=== PATIENT | male | born 1995 | race Hispanic/Latino ===

== ENCOUNTER 2017-01-27 02:47 | Emergency (ER) | payer OTHER ==
[2017-01-27 02:59] VITALS: BP 136/74; RESP 16; TEMP 97.9; O2SAT 97
--- NOTE | 2017-01-27 03:11 | ED PDOC ---
HPI: Psych/Substance Abuse Time Seen by Provider: 01/27/17 02:57 Chief Complaint (Nursing): Alcohol Ingestion Chief Complaint (Provider): ETOH ingestion History Per: Patient History/Exam Limitations: no limitations Onset/Duration Of Symptoms: Mins Current Symptoms Are (Timing): Still Present Suicide/Self Injury Attempted (Context): None Modifying Factor(s): Alcohol Additional Complaint(s): The patient is a 21yo male, hx of SVT, brought to the ED by EMS for evaluation s /p finding the patient publicly intoxicated. Patient denies any chest pain, chest tightness, shortness of breath. Patient currently offers no additional medical complaints. Past Medical History Reviewed: Historical Data, Nursing Documentation, Vital Signs Vital Signs: Last Vital Signs Temp 97.9 F 01/27/17 02:57 Pulse 143 H 01/27/17 02:57 Resp 16 01/27/17 02:57 BP 136/74 01/27/17 02:57 Pulse Ox 97 01/27/17 02:57 - Medical History PMH: No Chronic Diseases - Family History Family History: States: No Known Family Hx - Allergies Allergies/Adverse Reactions: Allergies Allergy/AdvReac Type Severity Reaction Status Date / Time No Known Allergies Allergy Verified 01/27/17 02:57 Review of Systems ROS Statement: Except As Marked, All Systems Reviewed And Found Negative Cardiovascular: Negative for: Chest Pain Respiratory: Negative for: Shortness of Breath Physical Exam - Reviewed Nursing Documentation Reviewed: Yes Vital Signs Reviewed: Yes - Physical Exam Appears: Positive for: Well, Non-toxic, No Acute Distress Head Exam: Positive for: ATRAUMATIC, NORMAL INSPECTION, NORMOCEPHALIC Skin: Positive for: Normal Color Eye Exam: Positive for: Normal appearance Neck: Positive for: Normal, Supple Cardiovascular/Chest: Positive for: Regular Rate, Rhythm Respiratory: Negative for: Respiratory Distress Gastrointestinal/Abdominal: Positive for: Other (abrasions noted to abdomen) Extremity: Positive for: Normal ROM, Other (abrasions noted to bilateral forearms). Negative for: Deformity, Swelling Neurologic/Psych: Positive for: Alert, Oriented - ECG ECG: Positive for: Interpreted By Me, Viewed By Me ECG Rhythm: Positive for: Sinus Rhythm, Sinus Tachycardia, Right Bundle Branch Block (incomplete). Negative for: ST/T Changes Rate: 130 O2 Sat by Pulse Oximetry: 97 (RA) Pulse Ox Interpretation: Normal Medical Decision Making Medical Decision Making: Time: 304 Impression: ETOH intoxication Plan: -- EKG -- Labs Reassess Time: 427 Patient with steady gait, alert, awake and oriented. Stable for discharge home. Scribe Attestation: Documented by Kayla Whyte acting as a scribe for Odalis Ravi MD. Provider Attestation: All medical record entries made by the Scribe were at my direction and personally dictated by me. I have reviewed the chart and agree that the record accurately reflects my personal performance of the history, physical exam, medical decision making, and the department course for this patient. I have also personally directed, reviewed, and agree with the discharge instructions and disposition. Disposition - Clinical Impression Clinical Impression: Alcohol ingestion - Patient ED Disposition Is Patient to be Admitted: No - Disposition Referrals: [facility] [Outside] Disposition: Routine/Home Disposition Time: 04:28 Condition: GOOD Instructions: Alcohol Intoxication (ED)
[2017-01-27 03:12] VITALS: PULSE 130
--- NOTE | 2017-01-27 12:53 | CARD ---
APPROVED REPORT EKG Measurement Heart [id number] <Conclusion> Sinus tachycardia Possible Left atrial enlargement Rightward axis Incomplete right bundle branch block Borderline ECG possible arm lead reversal-edna coats
== END 2017-01-27 04:30 | disposition home or self-care (01) ==
LOC: H.ER 02:47
DX: F10.129 Alcohol abuse with intoxication, unspecified (principal)